=== PATIENT | female | born 1985 | race African-American/Black ===

== ENCOUNTER 2016-12-20 05:31 | Day surgery (SDC) | payer MEDICARE, MEDICAID ==
[2016-12-14 10:47] LABS: APPEARANCE,URINE SLIGHTLY-CLOUDY; BILIRUBIN,URINE NEGATIVE (NEGATIVE); GLUCOSE, URINE NEGATIVE (NEGATIVE); KETONES,URINE NEGATIVE (NEGATIVE); LEUKOCYTE ESTERASE,URINE NEGATIVE (NEGATIVE); NITRITE,URINE NEGATIVE (NEGATIVE); PROTEIN,URINE NEGATIVE (NEGATIVE); UROBILINOGEN,URINE NEGATIVE mg/dL (<2.0)
[2016-12-14 11:07] LABS: HEMOGLOBIN 12.5 g/dL (12.0-15.5); HGB HCT DIFFERENCE -0.5; MEAN CORPUSCULAR HEMOGLOBIN 28.4 pg (27.0-33.4); MEAN CORPUSCULAR HGB CONC 32.9 g/dL (32.0-36.0); MEAN CORPUSCULAR VOLUME 86 fl (80-97); RED CELL DISTRIBUTION WIDTH 14.4 % (11.5-14.0)
[2016-12-14 11:21] LABS: ALANINE AMINOTRANSFERASE 28 U/L (9-52); ALBUMIN 4.8 g/dL (3.5-5.0); ALKALINE PHOSPHATASE 119 U/L (38-126); ANION GAP 13 (5-19); ASPARTATE AMINO TRANSFERASE 26 U/L (14-36); BILIRUBIN,DIRECT 0.4 mg/dL (0.0-0.4); BILIRUBIN,TOTAL 0.4 mg/dL (0.2-1.3); BLOOD UREA NITROGEN 18 mg/dL (7-20); CALCIUM 10.2 mg/dL (8.4-10.2); CARBON DIOXIDE 21 mmol/L (22-30); CHLORIDE 110 mmol/L (98-107); CREATININE RESULT 0.84 mg/dL (0.52-1.25); GLUCOSE 91 mg/dL (75-110); POTASSIUM 4.2 mmol/L (3.6-5.0); TOTAL PROTEIN 7.5 g/dL (6.3-8.2)
[~2016-12-20 05:31] MED LIST: CEFAZOLIN 1 GM/D5W RTU 1 GM/50 ML RTUPB IV PRN; LACTATED RINGERS 1000 ML IV PRN
[2016-12-20] MEDS ORDERED: FENTANYL CITRATE INJ/PF 250 MCG/5 ML AMPULE ONE (06:52)
[2016-12-20] MEDS ORDERED: MIDAZOLAM 2 MG/2 ML INJ ONE (06:52)
[2016-12-20] MEDS ORDERED: PROPOFOL INJ 200 MG/20 ML VIAL IV ONE (06:53)
[2016-12-20] MEDS ORDERED: EPHEDRINE SULFATE INJ 50 MG/1 ML AMPULE ONE (06:53)
[2016-12-20] MEDS ORDERED: ACETAMINOPHEN 100 ML IV ONE (06:53)
[2016-12-20] MEDS ORDERED: FENTANYL CITRATE INJ/PF 100 MCG/2 ML AMPUL ONE (06:54)
[2016-12-20] MEDS ORDERED: LIDOCAINE 1% INJ-PF (10 MG/ML) 30 ML SDV ONE (07:30)
[2016-12-20] MEDS ORDERED: MEPERIDINE HCL/PF INJ 25 MG/1 ML DISP.SYRIN IV PRN (08:06)
[2016-12-20] MEDS ORDERED: PROMETHAZINE HCL INJ 25 MG/1 ML VIAL IV PRN ×2 (08:06→08:52)
[2016-12-20] MEDS ORDERED: DIPHENHYDRAMINE HCL 50 MG/ML VIAL IV PRN (08:06)
[2016-12-20] MEDS ORDERED: MORPHINE SULFATE 10 MG/ML INJ IV PRN (08:06)
[2016-12-20] MEDS ORDERED: FENTANYL CITRATE INJ/PF 100 MCG/2 ML AMPUL IV PRN ×3 (08:06)
[2016-12-20 08:35] LABS: APPEARANCE,URINE CLEAR; BILIRUBIN,URINE NEGATIVE (NEGATIVE); GLUCOSE, URINE NEGATIVE (NEGATIVE); KETONES,URINE NEGATIVE (NEGATIVE); LEUKOCYTE ESTERASE,URINE NEGATIVE (NEGATIVE); NITRITE,URINE NEGATIVE (NEGATIVE); PROTEIN,URINE NEGATIVE (NEGATIVE); URINE SPECIFIC GRAVITY 1.019; UROBILINOGEN,URINE NEGATIVE mg/dL (<2.0)
[2016-12-20] MEDS: FENTANYL CITRATE INJ/PF 100 MCG/2 ML AMPUL ONE ×2 (08:37→08:52)
[2016-12-20] MEDS ORDERED: OXYCODONE-ACETAMINOPHEN 5-325 MG TABLET PO PRN (08:52)
--- NOTE | 2016-12-20 08:53 | OPERATIVE REPORT E ---
Operative Report NAME: DENA OWENS : 1985 AGE: 31Y DATE OF SURGERY: 12/20/2016 ROOM: PREOPERATIVE DIAGNOSIS: Left labial nodule and hematuria. POSTOPERATIVE DIAGNOSIS: Hematuria, cause undetermined, and scar tissue from previous left labial abscess. OPERATION: Cysto and pelvic under anesthesia. SURGEON: CASSANDRA DRAPER M.D. ANESTHESIA: General. FINDINGS AT THE TIME OF SURGERY: The vulva had a scar where she had had a previous left labial abscess. It seemed to be pretty well resolved so nothing was done with this. The urethral opening appeared to be normal. [place] glands were normal. No Bartholin cyst. The vagina had no discharge. Cervix was within normal limits. Uterus was mid plane, not enlarged. Adnexa: No masses were appreciated. PROCEDURE: The patient was brought into the OR, placed on a table in a supine position, inducted under general anesthesia. Following this she was repositioned in a dorsal lithotomy position, prepped and draped in a sterile fashion. The bladder was drained of 50 mL of clear yellow urine and a sample was sent for a urinalysis and culture. The cystoscope was gently inserted with the saline running through the external urethral meatus, carried through the internal meatus as the saline was running. It was allowed to fill up. The bladder was inspected. There was no evidence of any hemorrhages and no petechia. The trigone and ureteral orifices were within normal limits. The dome of the bladder appeared to be normal. The saline was removed and the cystoscope was removed. Attention was turned to the left labial nodule. This was inspected. At this point in time there was no drainage. This appeared to be a nodule secondary to a residual abscess that had healed. With this in mind we decided not to proceed in lieu of the fact that we may make it worse by increasing the amount of scar tissue in this area. This terminated the procedure. The patient was put back into the supine position and anesthesia was discontinued. She was transferred to the recovery room in satisfactory condition. Negligible blood loss. DICTATING PHYSICIAN: CASSANDRA DRAPER M.D. [id number] PHY#: [id number] ID: [id number] JOB#: [id number] ACCT: [id number] cc:CASSANDRA DRAPER M.D. >
[2016-12-20] MEDS ORDERED: LIDOCAINE 2% INJ-PF (20 MG/ML) 10 ML AMPUL ONE (10:23)
[2016-12-20] MEDS ORDERED: ONDANSETRON HCL INJ/PF 4 MG/2 ML SDV ONE (10:23)
[2016-12-20] MEDS ORDERED: DEXAMETHASONE SOD PHOSPHATE INJ 4 MG/1 ML VIAL ONE (10:23)
[2016-12-20] MEDS ORDERED: SUCCINYLCHOLINE CHLORIDE INJ 200 MG/10 ML VIAL ONE (10:23)
[2016-12-20] MEDS ORDERED: GLYCOPYRROLATE INJ 0.4 MG/2 ML VIAL ONE (10:23)
[2016-12-20 11:17] VITALS: BP 138/93
== END 2016-12-20 11:00 | disposition home or self-care (01) ==
LOC: OROUT 05:31
PROVIDERS: ATTEND Obstetrics & Gynecology
PROC: 0TJB8ZZ Inspection of Bladder, Via Natural or Artificial Opening Endoscopic (ICD-10-PCS; principal; 2016-12-20 07:30)
DX: N94.89 Other specified conditions associated with female genital organs and menstrual cycle (principal); R31.9 Hematuria, unspecified
CPT/HCPCS: 36415; 87086; 85027; 81025; 80053; 81001 ×2; 52000; J2250; J0690; J1100; J3010 ×2; J3490 ×2; A9270; J2550; J0330; J2405; J2704; J0131; 910

== ENCOUNTER → 2017-04-12 | Outpatient (CLI) | payer MEDICARE, MEDICAID ==
--- NOTE | 2017-04-12 16:38 | RADIOLOGY REPORT (SQ) ---
EXAM DESCRIPTION: SACRUM AND COCCYX COMPLETED DATE/TIME: 04/12/2017 4:26 pm REASON FOR STUDY: FALL WITH PAIN ROM ISSUES LOW BACK COMPARISON: None. NUMBER OF VIEWS: Three views. TECHNIQUE: AP, lateral, and tilt views of the sacrum and coccyx. LIMITATIONS: None. FINDINGS: MINERALIZATION: Normal. BONES: On the lateral view, there is an acute fracture through the distal sacrum near the sacrococcyg eal junction. This is nondisplaced nonangulated. SOFT TISSUES: No soft tissue swelling. No foreign body. OTHER: No other significant finding. IMPRESSION: Lateral view demonstrates an acute fracture through the distal sacrum near the sacrococc ygeal junction. This is non angulated, nondisplaced. TECHNICAL DOCUMENTATION: JOB ID: [id number] [employer]- All Rights Reserved
== END ==
LOC: RAD 16:05
PROVIDERS: ATTEND Obstetrics & Gynecology
DX: M54.5 Low back pain (principal)
CPT/HCPCS: 72220

== ENCOUNTER → 2017-06-25 | Outpatient (CLI) | payer MEDICARE, MEDICAID ==
--- NOTE | 2017-06-25 13:19 | RADIOLOGY REPORT (SQ) ---
EXAM DESCRIPTION: CHEST PA/LAT COMPLETED DATE/TIME: 06/25/2017 12:32 pm REASON FOR STUDY: PERSISTENT COUGH/RHINOSINUSITIS/BRONCHITIS COMPARISON: None. EXAM PARAMETERS: NUMBER OF VIEWS: two views TECHNIQUE: Digital Frontal and Lateral radiographic views of the chest acquired. RADIATION DOSE: NA LIMITATIONS: none FINDINGS: LUNGS AND PLEURA: No opacities, masses or pneumothorax. No pleural effusion. MEDIASTINUM AND HILAR STRUCTURES: No masses or contour abnormalities. HEART AND VASCULAR STRUCTURES: Heart normal size. No evidence for failure. BONES: No acute findings. HARDWARE: None in the chest. OTHER: No other significant finding. IMPRESSION: NO SIGNIFICANT RADIOGRAPHIC FINDING IN THE CHEST. TECHNICAL DOCUMENTATION: JOB ID: [id number] [employer]- All Rights Reserved Reading location - IP/workstation name: [email or web address]
--- NOTE | 2017-06-25 13:24 | RADIOLOGY REPORT (SQ) ---
EXAM DESCRIPTION: PARANASAL SINUSES COMPLETED DATE/TIME: 06/25/2017 12:32 pm REASON FOR STUDY: RHINOSINUSITIS COMPARISON: None. NUMBER OF VIEWS: Three views. TECHNIQUE: Images of the paranasal sinuses acquired. LIMITATIONS: None. FINDINGS: ORBITS: No fracture. No foreign body. SINUSES: No mucosal thickening. No air fluid levels. FACIAL BONES: No fracture. OTHER: No other significant finding. IMPRESSION: NO FOREIGN BODY OR FRACTURE. NO PLAIN RADIOGRAPHIC EVIDENCE FOR SINUS DISEASE. TECHNICAL DOCUMENTATION: JOB ID: [id number] [employer]- All Rights Reserved Reading location - IP/workstation name: [email or web address]
== END ==
LOC: RAD 12:00
PROVIDERS: ATTEND Obstetrics & Gynecology
DX: J32.9 Chronic sinusitis, unspecified (principal); J40 Bronchitis, not specified as acute or chronic; R05 Cough
CPT/HCPCS: 70220; 71046

== ENCOUNTER 2018-02-18 19:51 | Observation (INO) | payer OTHER, MEDICARE, MEDICAID ==
[2018-02-18 20:39] LABS: APPEARANCE,URINE CLEAR; BILIRUBIN,URINE NEGATIVE (NEGATIVE); COLOR,URINE YELLOW; GLUCOSE, URINE NEGATIVE (NEGATIVE); KETONES,URINE NEGATIVE (NEGATIVE); LEUKOCYTE ESTERASE,URINE MODERATE (NEGATIVE); NITRITE,URINE NEGATIVE (NEGATIVE); PROTEIN,URINE NEGATIVE (NEGATIVE); URINE SPECIFIC GRAVITY 1.008; UROBILINOGEN,URINE NEGATIVE mg/dL (<2.0)
[2018-02-18 20:53] LABS: URINE AMPHETAMINES SCREEN NEGATIVE; URINE BARBITURATES SCREEN NEGATIVE; URINE BENZODIAZEPINES SCREEN NEGATIVE; URINE COCAINE SCREEN NEGATIVE; URINE METHADONE SCREEN NEGATIVE; URINE PHENCYCLIDINE SCREEN NEGATIVE
[2018-02-18 21:04] LABS: URINE MARIJUANA (THC) SCREEN UNCONFIRMED POSITIVE
[2018-02-19] MEDS ORDERED: RINGERS SOLUTION,LACTATED 1,000 ML IV PRN (01:12)
[2018-02-19] MEDS ORDERED: NIFEDIPINE 10 MG CAPSULE ONE (01:17)
[2018-02-19] MEDS ORDERED: NIFEDIPINE 10 MG CAPSULE PO ONE (01:55)
[2018-02-19 01:59] LABS: HEMATOCRIT 28.6 % (36.0-47.0); HEMOGLOBIN 9.9 g/dL (12.0-15.5); MEAN CORPUSCULAR HEMOGLOBIN 29.6 pg (27.0-33.4); MEAN CORPUSCULAR HGB CONC 34.4 g/dL (32.0-36.0); MEAN CORPUSCULAR VOLUME 86 fl (80-97); PLATELET COUNT 186 10^3/uL (150-450); RED BLOOD COUNT 3.33 10^6/uL (3.72-5.28); RED CELL DISTRIBUTION WIDTH 13.9 % (11.5-14.0); WHITE BLOOD COUNT 10.1 10^3/uL (4.0-10.5)
[2018-02-19 02:17] LABS: ABSOLUTE LYMPHOCYTES# (MANUAL) 1.8 10^3/uL (0.5-4.7); ABSOLUTE MONOCYTES # (MANUAL) 0.4 10^3/uL (0.1-1.4); ABSOLUTE NEUTROPHILS# (MANUAL) 7.9 10^3/uL (1.7-8.2); BASOPHILS % (MANUAL) 0 % (0-2); EOSINOPHILS % (MANUAL) 0 % (0-6); LYMPHOCYTES % (MANUAL) 17 % (13-45); MONOCYTES % (MANUAL) 4 % (3-13); SEGMENTED NEUTROPHILS % (MAN) 78 % (42-78); TOTAL CELLS COUNTED 100
[2018-02-19 02:20] LABS: ACANTHOCYTES 1+; HELMET CELLS SLIGHT; OVALOCYTES 1+; POIKILOCYTOSIS 1+; TOXIC GRANULATION SLIGHT
[2018-02-19 02:21] LABS: PLATELET COMMENT ADEQUATE
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
== END 2018-02-19 08:05 | disposition home or self-care (01) ==
LOC: LC 19:51 → LR 02-19 01:12
PROVIDERS: ADMIT Obstetrics & Gynecology; ATTEND Obstetrics & Gynecology
PROC: 4A0HXCZ Measurement of Products of Conception, Cardiac Rate, External Approach (ICD-10-PCS; principal; 2018-02-18)
DX: Z04.1 Encounter for examination and observation following transport accident (principal); O47.03 False labor before 37 completed weeks of gestation, third trimester; Z3A.35 35 weeks gestation of pregnancy; Z87.891 Personal history of nicotine dependence
CPT/HCPCS: 59025; 86900; 86901; 36415; 86850; 85025; 86592; 81001; 80307; 84112; J3490

== ENCOUNTER 2018-02-26 03:05 | Inpatient (IN) | payer MEDICARE, MEDICAID ==
[2018-02-26] MEDS ORDERED: OXYTOCIN/NORMAL SALINE 20 UNIT/1,000 ML RTUINJ ONE ×3 (03:10→08:16)
[2018-02-26] MEDS ORDERED: LIDOCAINE 1% INJ-PF (10 MG/ML) 30 ML SDV ONE (03:11)
[2018-02-26] MEDS ORDERED: OXYTOCIN 10 UNIT/ML VIAL ONE (03:11)
[2018-02-26] MEDS ORDERED: MISOPROSTOL 0.2 MG TABLET ONE ×2 (03:11→08:19)
[2018-02-26] MEDS ORDERED: PENICILLIN G-K 5 MILLION UNIT VIAL ONE (03:16)
[2018-02-26] MEDS ORDERED: FENTANYL CITRATE INJ/PF 100 MCG/2 ML AMPUL ONE (03:18)
[2018-02-26] MEDS ORDERED: FENTANYL CITRATE INJ/PF 100 MCG/2 ML AMPUL IV ONE (03:22)
[2018-02-26] MEDS ORDERED: PENICILLIN G POTASSIUM 5,000,000 UNIT in DEXTROSE 5%-WATER 100 ML IV ONE (03:26)
[2018-02-26] MEDS ORDERED: RINGERS SOLUTION,LACTATED 1,000 ML IV ONE (03:26)
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
[2018-02-26 03:43] LABS: HEMATOCRIT 32.8 % (36.0-47.0); MEAN CORPUSCULAR HEMOGLOBIN 29.1 pg (27.0-33.4); MEAN CORPUSCULAR HGB CONC 33.6 g/dL (32.0-36.0); MEAN CORPUSCULAR VOLUME 87 fl (80-97); PLATELET COUNT 221 10^3/uL (150-450); RED BLOOD COUNT 3.78 10^6/uL (3.72-5.28); RED CELL DISTRIBUTION WIDTH 14.2 % (11.5-14.0); WHITE BLOOD COUNT 16.9 10^3/uL (4.0-10.5)
[2018-02-26] MEDS ORDERED: EPHEDRINE SULFATE INJ 50 MG/1 ML AMPULE ONE (04:12)
[2018-02-26] MEDS ORDERED: FENTANYL/BUPIVACAINE/NS/PF 0 MCG/0 ML RTUINJ EPI ONE (04:13)
[2018-02-26] MEDS ORDERED: BUPIVACAINE HCL 0.5 % INJ/PF 30 ML SDV ONE (04:13)
[2018-02-26] MEDS ORDERED: OXYTOCIN/NORMAL SALINE 20 UNIT/1,000 ML RTUINJ IV PRN ×2 (05:14→05:58)
[2018-02-26] MEDS ORDERED: PSEUDOEPHEDRINE HCL 30 MG TABLET PO PRN (05:58)
[2018-02-26] MEDS ORDERED: DIBUCAINE 1% OINTMENT 28 GM TP PRN (05:58)
[2018-02-26] MEDS ORDERED: MAGNESIUM HYDROXIDE SUSP 30 ML UDCUP PO PRN (05:58)
[2018-02-26] MEDS ORDERED: MEASLES,MUMPS&RUBELLA VACC/PF 0.5 ML VIAL SUBCUT PRN (05:58)
[2018-02-26] MEDS ORDERED: NA PHOS,M-B/NA PHOS,DI-BA (ADULT) 133 ML ENEMA PR PRN (05:58)
[2018-02-26] MEDS ORDERED: PROMETHAZINE HCL INJ 25 MG/1 ML VIAL IV PRN (05:58)
[2018-02-26] MEDS ORDERED: ACETAMINOPHEN 650 MG SUPP.RECT PR PRN (05:58)
[2018-02-26] MEDS ORDERED: BENZOCAINE/MENTHOL AEROSOL SPRAY 56 ML TOP PRN (05:58)
[2018-02-26] MEDS ORDERED: DIPHENHYDRAMINE HCL 25 MG CAPSULE PO PRN (05:58)
[2018-02-26] MEDS ORDERED: PROMETHAZINE HCL 25 MG SUPP.RECT PR PRN (05:58)
[2018-02-26] MEDS ORDERED: ZOLPIDEM TARTRATE 5 MG TABLET PO PRN (05:58)
[2018-02-26] MEDS ORDERED: PROMETHAZINE HCL 25 MG TABLET PO PRN (05:58)
[2018-02-26] MEDS ORDERED: DIPH/PERTUSS(ACELL)/TETANUS VAC/PF 0.5 ML SYR (>=10YO) IM PRN (05:58)
[2018-02-26] MEDS ORDERED: GLYCERIN/WITCH HAZEL LEAF 1 EACH MED..PAD TP PRN (05:58)
[2018-02-26] MEDS ORDERED: ACETAMINOPHEN WITH CODEINE #3 TABLET PO PRN (05:58)
[2018-02-26] MEDS ORDERED: IBUPROFEN 800 MG TABLET ONE (06:05)
[2018-02-26 06:08] LABS: APPEARANCE,URINE CLEAR; BILIRUBIN,URINE NEGATIVE (NEGATIVE); COLOR,URINE STRAW; GLUCOSE, URINE NEGATIVE (NEGATIVE); KETONES,URINE TRACE mg/dL (NEGATIVE); LEUKOCYTE ESTERASE,URINE NEGATIVE (NEGATIVE); NITRITE,URINE NEGATIVE (NEGATIVE); PROTEIN,URINE NEGATIVE (NEGATIVE); URINE SPECIFIC GRAVITY 1.018; UROBILINOGEN,URINE NEGATIVE mg/dL (<2.0)
[2018-02-26 06:17] LABS: URINE AMPHETAMINES SCREEN NEGATIVE; URINE BARBITURATES SCREEN NEGATIVE; URINE BENZODIAZEPINES SCREEN NEGATIVE; URINE COCAINE SCREEN NEGATIVE; URINE METHADONE SCREEN NEGATIVE; URINE PHENCYCLIDINE SCREEN NEGATIVE
[2018-02-26 06:24] LABS: URINE MARIJUANA (THC) SCREEN UNCONFIRMED POSITIVE
--- NOTE | 2018-02-26 06:35 | Warning Signs in Babies ---
VOD Warning Signs Datetime Report Generated by N: 02/26/2018 06:35 VOD#608 -Warning Signs in Babies: Viewed with Parent(s)/Family (02/26/2018 06:20:Rosy Miranda RN)
[2018-02-26] MEDS ORDERED: PENICILLIN G POTASSIUM 2,500,000 UNIT in DEXTROSE 5%-WATER 50 ML IV SCH (07:27)
--- NOTE | 2018-02-26 07:31 | Delivery Summary ---
Del Sum A-C Datetime Report Generated by CPN: 02/26/2018 07:31 DELIVERY PERSONNEL DELIVERY PERSONNEL: [id number] Delivery Doctor:: Danielle Galvan MD Labor and Delivery Nurse:: Rosy Miranda RN Community Living Coach/GAME MASTER: Angel Ortiz GAME MASTER Community Living Coach/GAME MASTER: Guille Zazueta CNA Additional Personnel: : Lenore Hill, RN MATERNAL INFORMATION Delivery Anesthesia: None Medications After Delivery: Pitocin Drip 20 Units/1000ml NSS Estimated Blood Loss (ml): 300 Maternal Complications: Precipitous Labor (<3hrs); Abruptio Placenta Complication Details: partial placental abruption Provider Comments: dark clotted blood with passage of placenta c/w a possible partial abruption LABOR SUMMARY EDC: 03/21/2018 00:00 No. Babies in Womb: 1 Attempted: No Labor Anesthesia: None LABOR INFORMATION Reason for Induction: Not Applicable Onset of Labor: 02/26/2018 03:15 Complete Dilatation: 02/26/2018 05:43 Oxytocin: Augmentation Group B Beta Strep: unknown Antibiotics # of Doses: 1 Antibiotics Time of Last Dose: 0316 Name of Antibiotic Given: Penicillin Steroids Given: None Reason Steroids Not Administered: Not Applicable MEMBRANES Membranes Rupture Method: Artificial Rupture of Membranes: 02/26/2018 03:15 (Annotations: Per Dr. Galvan sve assessment ) Length of Rupture (hr): 2.52 Amniotic Fluid Color: Clear Amniotic Fluid Amount: Small Amniotic Fluid Odor: Normal STAGES OF LABOR Stage 1 hr: 2 Stage 1 min: 28 Stage 2 hr: 0 Stage 2 min: 3 Stage 3 hr: 0 Stage 3 min: 4 Total Time in Labor hr: 2 Total Time in Labor min: 35 VAGINAL DELIVERY Episiotomy: None Laceration #1: None Laceration Extension #1: N/A Laceration Repair: Not Applicable Sponge Count Correct: N/A Sharps Count Correct: N/A CSECTION DELIVERY Primary Indication: N/A Secondary Indication: N/A CSection Incidence: N/A Labor: N/A Elective: N/A CSection Incision: N/A BABY A INFORMATION Delivery Date/Time: 02/26/2018 05:46 Method of Delivery: Vaginal Born in Route : No : N/A Forceps: N/A Vacuum Extraction: N/A Shoulder Dystocia : No PRESENTATION/POSITION BABY A Presentation: Cephalic Cephalic Presentation: Vertex Vertex Position: Right Occipital Anterior Breech Presentation: N/A PLACENTA INFORMATION BABY A Placenta Delivery Time : 02/26/2018 05:50 Placenta Method of Delivery: Spontaneous Placenta Status: Delivered SCORES BABY A Heart Rate 1 min: >100 bpm Resp Effort 1 min: Good Cry Reflex Irritability 1 min: Cough or Sneeze or Pulls Away Muscle Tone 1 min: Active Motion Color 1 min: Blue/Pale Resuscitation Effort 1 min: Tactile Stimulation SCORE 1 MIN: 8 Heart Rate 5 min: >100 bpm Resp Effort 5 min: Good Cry Reflex Irritability 5 min: Cough or Sneeze or Pulls Away Muscle Tone 5 min: Active Motion Color 5 min: Body [place], Extremities Blue SCORE 5 MIN: 9 INFANT INFORMATION BABY A Gestational Age at Delivery: 36.5 Gestational Status: Late - 34- 36.6 Weeks Infant Outcome : Liveborn Infant Condition : Stable Infant Sex: Male IDENTIFICATION BABY A Infant Verification Date/Time: 02/26/2018 06:00 ID Band Number: [id number] Mother's Name Verified: Yes RN Verifying Infant: MRichard Miranda RN Additional Verifying Personnel: RRichard Ortiz GAME MASTER WEIGHT/LENGTH BABY A Birthweight (gm): 2520 Infant Weight (lb): 5 Weight (oz): 9 Infant Length (in): 18.50 Length (cm): 46.99 CORD INFORMATION BABY A No. Cord Vessels: 3 Nuchal Cord : N/A Cord Blood Taken: Yes-For Storage (Mom's Blood type +) Suction: None ASSESSMENT BABY A Infant Complications: Multiple Variable Decels Physical Findings at Delivery: Within Normal Limits Infant Respirations: Appears Normal Skin to Skin: No Sports Development Officer/ALS Called : No Care By: Abelardo Massey RN Transferred To: Remains with Mother BABY B INFORMATION : N/A SIGNATURES Signature: with User ID: [email or web address]
[2018-02-26] MEDS ORDERED: METHYLERGONOVINE MALEATE INJ/PF 0.2 MG/1 ML AMPULE ONE (08:17)
[2018-02-26] MEDS ORDERED: ONDANSETRON HCL INJ/PF 4 MG/2 ML SDV ONE (09:09)
[2018-02-26] MEDS ORDERED: ONDANSETRON HCL INJ/PF 4 MG/2 ML SDV IV ONE (09:10)
--- NOTE | 2018-02-26 13:39 | Delivery Summary ---
Del Sum A-C Datetime Report Generated by CPN: 02/26/2018 13:38 DELIVERY PERSONNEL DELIVERY PERSONNEL: [id number] Delivery Doctor:: Danielle Galvan MD Labor and Delivery Nurse:: Rosy Miranda RN Asphalt Plant Worker/DIRECTOR OF PROFESSIONAL SERVICES: Angel Ortiz DIRECTOR OF PROFESSIONAL SERVICES Asphalt Plant Worker/DIRECTOR OF PROFESSIONAL SERVICES: Guille Zazueta CNA Additional Personnel: : Lenore Hill, RN MATERNAL INFORMATION Delivery Anesthesia: None Medications After Delivery: Pitocin Drip 20 Units/1000ml NSS Estimated Blood Loss (ml): 300 Maternal Complications: Precipitous Labor (<3hrs); Abruptio Placenta Complication Details: partial placental abruption Provider Comments: dark clotted blood with passage of placenta c/w a possible partial abruption LABOR SUMMARY EDC: 03/21/2018 00:00 No. Babies in Womb: 1 Attempted: No Labor Anesthesia: None LABOR INFORMATION Reason for Induction: Not Applicable Onset of Labor: 02/26/2018 03:15 Complete Dilatation: 02/26/2018 05:43 Oxytocin: Augmentation Group B Beta Strep: unknown Antibiotics # of Doses: 1 Antibiotics Time of Last Dose: 0316 Name of Antibiotic Given: Penicillin Steroids Given: None Reason Steroids Not Administered: Not Applicable MEMBRANES Membranes Rupture Method: Artificial Membranes Rupture Method: Spontaneous Membranes Rupture Method: Spontaneous Rupture of Membranes: 02/26/2018 03:15 (Annotations: Per Dr. Galvan sve assessment ) Length of Rupture (hr): 2.52 Amniotic Fluid Color: Clear Amniotic Fluid Amount: Small Amniotic Fluid Odor: Normal STAGES OF LABOR Stage 1 hr: 2 Stage 1 min: 28 Stage 2 hr: 0 Stage 2 min: 3 Stage 3 hr: 0 Stage 3 min: 4 Total Time in Labor hr: 2 Total Time in Labor min: 35 VAGINAL DELIVERY Episiotomy: None Laceration #1: None Laceration Extension #1: N/A Laceration Repair: Not Applicable Sponge Count Correct: N/A Sharps Count Correct: N/A CSECTION DELIVERY Primary Indication: N/A Secondary Indication: N/A CSection Incidence: N/A Labor: N/A Elective: N/A CSection Incision: N/A BABY A INFORMATION Infant Delivery Date/Time: 02/26/2018 05:46 Method of Delivery: Vaginal Method of Delivery: Vaginal Born in Route : No : N/A Forceps: N/A Vacuum Extraction: N/A Shoulder Dystocia : No PRESENTATION/POSITION BABY A Presentation: Cephalic Cephalic Presentation: Vertex Vertex Position: Right Occipital Anterior Breech Presentation: N/A PLACENTA INFORMATION BABY A Placenta Delivery Time : 02/26/2018 05:50 Placenta Method of Delivery: Spontaneous Placenta Method of Delivery: Spontaneous Placenta Status: Delivered SCORES BABY A Heart Rate 1 min: >100 bpm Resp Effort 1 min: Good Cry Reflex Irritability 1 min: Cough or Sneeze or Pulls Away Muscle Tone 1 min: Active Motion Color 1 min: Blue/Pale Resuscitation Effort 1 min: Tactile Stimulation SCORE 1 MIN: 8 Heart Rate 5 min: >100 bpm Resp Effort 5 min: Good Cry Reflex Irritability 5 min: Cough or Sneeze or Pulls Away Muscle Tone 5 min: Active Motion Color 5 min: Body [place], Extremities Blue SCORE 5 MIN: 9 INFANT INFORMATION BABY A Gestational Age at Delivery: 36.5 Gestational Status: Late - 34- 36.6 Weeks Outcome : Liveborn Condition : Stable Sex: Male Sex: Male IDENTIFICATION BABY A Verification Date/Time: 02/26/2018 06:00 ID Band Number: [id number] Mother's Name Verified: Yes RN Verifying Infant: Abelardo Miranda RN Additional Verifying Personnel: RRichard Ortiz DIRECTOR OF PROFESSIONAL SERVICES WEIGHT/LENGTH BABY A Birthweight (gm): 2520 Weight (lb): 5 Infant Weight (oz): 9 Length (in): 18.50 Infant Length (cm): 46.99 CORD INFORMATION BABY A No. Cord Vessels: 3 Nuchal Cord : N/A Cord Blood Taken: Yes-For Storage (Mom's Blood type +) Infant Suction: None ASSESSMENT BABY A Infant Complications: Multiple Variable Decels Physical Findings at Delivery: Within Normal Limits Respirations: Appears Normal Skin to Skin: No Vessel Traffic Officer/ALS Called : No Care By: Abelardo Massey RN Infant Care By: Abelardo Massey RN Transferred To: Remains with Mother Transferred To: [facility] BABY B INFORMATION : N/A SIGNATURES Signature: with User ID: [email or web address]
[2018-02-26] MEDS: IBUPROFEN 800 MG TABLET PO SCH ×3 (14:02→21:59)
[2018-02-26] MEDS: DOCUSATE SODIUM 100 MG CAPSULE PO SCH ×2 (17:01→17:04)
[2018-02-26] MEDS: FERROUS SULFATE 325 MG TABLET PO SCH ×2 (17:02→17:04)
[2018-02-26] MEDS: FAMOTIDINE 20 MG TABLET PO SCH ×2 (17:04→22:00)
[2018-02-26] MEDS: SENNOSIDES/DOCUSATE 8.6-50 MG 1 EACH TABLET PO SCH (17:05)
[2018-02-26] MEDS: PRENATAL VITAMIN W DHA CAPSULE PO SCH (17:05)
[2018-02-26 17:20] LABS: HEMATOCRIT 17.9 % (36.0-47.0); MEAN CORPUSCULAR HEMOGLOBIN 29.3 pg (27.0-33.4); MEAN CORPUSCULAR HGB CONC 34.1 g/dL (32.0-36.0); MEAN CORPUSCULAR VOLUME 86 fl (80-97); PLATELET COUNT 139 10^3/uL (150-450); RED BLOOD COUNT 2.09 10^6/uL (3.72-5.28); RED CELL DISTRIBUTION WIDTH 14.2 % (11.5-14.0); WHITE BLOOD COUNT 16.9 10^3/uL (4.0-10.5)
[2018-02-26 17:25] LABS: HEMOGLOBIN 6.1 g/dL (12.0-15.5)
[2018-02-26 21:22] LABS: HEMATOCRIT 17.4 % (36.0-47.0); MEAN CORPUSCULAR HEMOGLOBIN 29.3 pg (27.0-33.4); MEAN CORPUSCULAR HGB CONC 33.5 g/dL (32.0-36.0); MEAN CORPUSCULAR VOLUME 87 fl (80-97); PLATELET COUNT 162 10^3/uL (150-450); RED BLOOD COUNT 1.99 10^6/uL (3.72-5.28); RED CELL DISTRIBUTION WIDTH 14.1 % (11.5-14.0); WHITE BLOOD COUNT 17.1 10^3/uL (4.0-10.5)
[2018-02-26 21:24] LABS: HEMOGLOBIN 5.8 g/dL (12.0-15.5)
[2018-02-26] MEDS ORDERED: NORMAL SALINE 250 ML IV PRN (21:37)
[2018-02-27] MEDS: IBUPROFEN 800 MG TABLET PO SCH ×3 (05:21→21:23)
[2018-02-27] MEDS: ACETAMINOPHEN WITH CODEINE #3 TABLET PO PRN ×3 (06:08→18:16)
[2018-02-27 07:49] LABS: HEMATOCRIT 23.8 % (36.0-47.0); MEAN CORPUSCULAR HEMOGLOBIN 28.7 pg (27.0-33.4); MEAN CORPUSCULAR HGB CONC 33.7 g/dL (32.0-36.0); MEAN CORPUSCULAR VOLUME 85 fl (80-97); PLATELET COUNT 127 10^3/uL (150-450); RED BLOOD COUNT 2.79 10^6/uL (3.72-5.28); RED CELL DISTRIBUTION WIDTH 14.1 % (11.5-14.0); WHITE BLOOD COUNT 13.2 10^3/uL (4.0-10.5)
[2018-02-27] MEDS: FAMOTIDINE 20 MG TABLET PO SCH ×2 (10:08→21:23)
[2018-02-27] MEDS: FERROUS SULFATE 325 MG TABLET PO SCH ×2 (10:08→18:13)
[2018-02-27] MEDS: DOCUSATE SODIUM 100 MG CAPSULE PO SCH ×2 (10:08→18:14)
[2018-02-27] MEDS: PRENATAL VITAMIN W DHA CAPSULE PO SCH (10:08)
[2018-02-27] MEDS: SENNOSIDES/DOCUSATE 8.6-50 MG 1 EACH TABLET PO SCH (10:08)
--- NOTE | 2018-02-27 10:29 | PDOC PROGRESS REPORT ---
Subjective-OB Progress Note for:: 02/27/18 Subjective: 32yo G4 now P4 s/p ppd1. Pt. ambulating and voiding without difficulties. Reports dizziness, lightheadedness and shortness of breath yesterday but none since blood transfusion. Pain well controlled with meds. Denies concerns today. Physical Exam (OB) Vital Signs: Temp Pulse Resp BP Pulse Ox 97.5 F 62 15 99/55 L 100 02/27/18 07:46 02/27/18 07:46 02/27/18 07:46 02/27/18 07:46 02/27/18 07:46 Intake & Output 02/26/18 02/27/18 02/28/18 06:59 06:59 06:59 Intake Total 320 Balance 320 Weight 55.9 kg - General General Appearance: Appears well In distress: None - PIH/Pre-Eclampsia Headache: Absent Epigastric Pain: No Visual Changes: No - Episiotomy/Laceration Site Condition: N/A - Lochia Lochia Amount: Scant < 10 ml Lochia Color: Rubra/Red - Abdomen Description: Soft Hernia Present: No Fundal Description: Firm, Midline Fundal Height: u/3 - u/4 - Respiratory Respiratory Status: No respiratory distress - Extremities Upper extremity: Normal inspection Lower extremities: Normal inspection - Neurological Cognition: Normal Orientation: AAOx4 - Psychological Associated symptoms: Normal affect, Normal mood Objective-Diagnostic Laboratory: 02/27/18 07:14 02/26/18 02/26/18 02/26/18 03:24 17:05 21:15 WBC 16.9 H 17.1 H RBC 2.09 L 1.99 L Hgb 6.1 L D 5.8 L Hct 17.9 L 17.4 L MCV 86 87 MCH 29.3 29.3 MCHC 34.1 33.5 RDW 14.2 H 14.1 H Plt Count 139 L 162 Blood Type O POSITIVE Antibody Screen NEGATIVE 02/27/18 07:14 WBC 13.2 H RBC 2.79 L Hgb 8.0 L D Hct 23.8 L MCV 85 MCH 28.7 MCHC 33.7 RDW 14.1 H Plt Count 127 L Blood Type Antibody Screen Assessment and Plan(PN) - Assessment and Plan (1) Vaginal delivery Is this a current diagnosis for this admission?: Yes Plan: Routine pp care, Monitor for s/s of infection (2) hemorrhage Qualifiers: hemorrhage type: unspecified Qualified Code(s): O72.1 - Other immediate hemorrhage Is this a current diagnosis for this admission?: Yes Plan: QBL was 794, bleeding stable since transfer from L&D. continue to monitor (3) Acute blood loss anemia Is this a current diagnosis for this admission?: Yes Plan: 2 units PRBC transfused, increase dietary iron and feso4 BID (4) Transfusion of blood during current hospitalisation Is this a current diagnosis for this admission?: Yes Plan: H/H improved to 8.2/23.8 this am, continue to monitor (5) Drug abuse during Is this a current diagnosis for this admission?: Yes Plan: discharge planning consult placed - Time Spent with Patient Time with patient: Less than 15 minutes Smoking Education Provided: Over 3 minutes Medications reviewed and adjusted accordingly: Yes - Disposition Anticipated Discharge: Home Within: within 24 hours
[2018-02-28] MEDS: ACETAMINOPHEN WITH CODEINE #3 TABLET PO PRN ×2 (02:28→09:34)
[2018-02-28] MEDS: IBUPROFEN 800 MG TABLET PO SCH (05:13)
[2018-02-28 08:51] VITALS: BP 125/70
[2018-02-28] MEDS: FERROUS SULFATE 325 MG TABLET PO SCH (09:31)
[2018-02-28] MEDS: DOCUSATE SODIUM 100 MG CAPSULE PO SCH (09:31)
[2018-02-28] MEDS: FAMOTIDINE 20 MG TABLET PO SCH (09:31)
[2018-02-28] MEDS: PRENATAL VITAMIN W DHA CAPSULE PO SCH (09:31)
[2018-02-28] MEDS: SENNOSIDES/DOCUSATE 8.6-50 MG 1 EACH TABLET PO SCH (09:31)
[2018-02-28] MEDS ORDERED: SIMETHICONE 80 MG TAB.CHEW PO ONE (10:33)
--- NOTE | 2018-02-28 10:37 | PDOC DISCHARGE SUMMARY ---
Final Diagnosis Discharge Date: 02/28/18 - Final Diagnosis (1) Vaginal delivery Is this a current diagnosis for this admission?: Yes Discharge Data - Discharge Medication Prescriptions: Acetaminophen with Codeine [Tylenol #3 Tablet] 1 each PO Q4HP PRN #20 tablet PRN Reason: Ibuprofen [Motrin 800 mg Tablet] 800 mg PO Q8HP PRN #60 tablet PRN Reason: Home Medications: Docusate Sodium [Colace] 100 mg PO DAILY 02/18/18 Pnv No.95/Ferrous Fum/Folic AC [ Vitamin Tablet] 1 each PO DAILY Ranitidine HCl [Zantac 150 mg Tablet] 150 mg PO BID 02/18/18 Acetaminophen with Codeine [Tylenol #3 Tablet] 1 each PO Q4HP PRN #20 tablet Ferrous Sulfate [Feosol 325 mg Tablet] 325 mg PO BID tablet 02/28/18 Ibuprofen [Motrin 800 mg Tablet] 800 mg PO Q8HP PRN #60 tablet 02/28/18 Vit/Dha [ Multi + Dha Capsule] 1 cap PO DAILY capsule Procedures: NST Intrapartum Procedure(s): Spontaneous Vaginal Delivery - Diagnosis Test Laboratory: Temp Pulse Resp BP Pulse Ox 97.9 F 59 L 16 125/70 100 02/28/18 07:38 02/28/18 07:38 02/28/18 07:38 02/28/18 07:38 02/28/18 07:38 02/26/18 02/26/18 02/26/18 03:27 05:28 17:05 RBC 3.78 2.09 L Hgb 11.0 L 6.1 L D Hct 32.8 L 17.9 L Urine Opiates Screen NEGATIVE 02/26/18 02/27/18 21:15 07:14 RBC 1.99 L 2.79 L Hgb 5.8 L 8.0 L D Hct 17.4 L 23.8 L Urine Opiates Screen - Discharge information/Instructions Discharge Activity: Balance Activity w/Rest, Pelvic Rest Discharge Diet: Regular Disposition: HOME, SELF-CARE Follow up with: [facility] in: 4, Weeks
--- NOTE | 2018-02-28 10:38 | PDOC PROGRESS REPORT ---
Subjective-OB Progress Note for:: 02/28/18 Subjective: reports bleeding slowing, complaining of right side pain. no CVAT. pt states it is possibly gas, RN notified and simethicone ordered. Physical Exam (OB) Vital Signs: Temp Pulse Resp BP Pulse Ox 97.9 F 59 L 16 125/70 100 02/28/18 07:38 02/28/18 07:38 02/28/18 07:38 02/28/18 07:38 02/28/18 07:38 Intake & Output 02/27/18 02/28/18 03/01/18 06:59 06:59 06:59 Intake Total 320 1250 Balance 320 1250 Weight 55.9 kg - Abdomen Description: Soft Hernia Present: No Fundal Description: Firm, Midline Fundal Height: u/3 - u/4 Objective-Diagnostic Laboratory: 02/27/18 07:14 02/26/18 07:30 Urine,Voided (Not Clean Catch) Chlamydia trachomatis ([facility]) - Final 02/26/18 07:30 Urine,Voided (Not Clean Catch) Neisseria gonorrhoeae ([facility]) - Final Assessment and Plan(PN) - Assessment and Plan (1) Vaginal delivery Is this a current diagnosis for this admission?: Yes - Time Spent with Patient Smoking Education Provided: Over 3 minutes Medications reviewed and adjusted accordingly: Yes - Disposition Anticipated Discharge: Home Within: Other - today
== END 2018-02-28 13:28 | disposition home or self-care (01) | DRG 805 ==
LOC: LC 03:05 → LR 03:23 → 2S 10:02
PROVIDERS: ADMIT Obstetrics & Gynecology; ATTEND Obstetrics & Gynecology
PROC: 10E0XZZ Delivery of Products of Conception, External Approach (ICD-10-PCS; principal; 2018-02-26)
PROC: 4A1HXCZ Monitoring of Products of Conception, Cardiac Rate, External Approach (ICD-10-PCS; 2018-02-26)
PROC: 30233N1 Transfusion of Nonautologous Red Blood Cells into Peripheral Vein, Percutaneous Approach (ICD-10-PCS; 2018-02-26)
PROC: 30233N1 Transfusion of Nonautologous Red Blood Cells into Peripheral Vein, Percutaneous Approach (ICD-10-PCS; 2018-02-27)
PROC: 3E02340 Introduction of Influenza Vaccine into Muscle, Percutaneous Approach (ICD-10-PCS; 2018-02-28)
DX: O62.3 Precipitate labor (principal); O45.8X3 Other premature separation of placenta, third trimester; Z37.0 Single live birth; O99.324 Drug use complicating childbirth; O72.1 Other immediate postpartum hemorrhage; D62 Acute posthemorrhagic anemia; O76 Abnormality in fetal heart rate and rhythm complicating labor and delivery; F12.90 Cannabis use, unspecified, uncomplicated; O99.02 Anemia complicating childbirth; Z3A.36 36 weeks gestation of pregnancy; Z87.891 Personal history of nicotine dependence; Z23 Encounter for immunization
CPT/HCPCS: 36415; 36430; 80307; 80349; 81001; 85027; 86592; 86850; 86900; 86901; 86920; 87086; 87491; 87591; 90471; 90686; 90715; G0008; G0480; J2210; J2405; J2540; J2590; J3010; J3490; P9016

== ENCOUNTER 2018-07-22 07:02 | Day surgery (SDC) | payer MEDICARE, MEDICAID ==
[2018-07-17 10:12] LABS: HEMATOCRIT 36.6 % (36.0-47.0); HEMOGLOBIN 12.3 g/dL (12.0-15.5); MEAN CORPUSCULAR HEMOGLOBIN 28.9 pg (27.0-33.4); MEAN CORPUSCULAR HGB CONC 33.7 g/dL (32.0-36.0); MEAN CORPUSCULAR VOLUME 86 fl (80-97); PLATELET COUNT 308 10^3/uL (150-450); RED BLOOD COUNT 4.27 10^6/uL (3.72-5.28); RED CELL DISTRIBUTION WIDTH 15.1 % (11.5-14.0); WHITE BLOOD COUNT 9.5 10^3/uL (4.0-10.5)
[2018-07-17 10:15] LABS: APPEARANCE,URINE CLEAR; BILIRUBIN,URINE NEGATIVE (NEGATIVE); COLOR,URINE YELLOW; GLUCOSE, URINE NEGATIVE (NEGATIVE); KETONES,URINE NEGATIVE (NEGATIVE); LEUKOCYTE ESTERASE,URINE NEGATIVE (NEGATIVE); NITRITE,URINE NEGATIVE (NEGATIVE); PROTEIN,URINE NEGATIVE (NEGATIVE); URINE SPECIFIC GRAVITY 1.017; UROBILINOGEN,URINE NEGATIVE mg/dL (<2.0)
[2018-07-17 10:36] LABS: ALANINE AMINOTRANSFERASE 37 U/L (9-52); ALBUMIN 4.7 g/dL (3.5-5.0); ALKALINE PHOSPHATASE 71 U/L (38-126); ANION GAP 8 (5-19); ASPARTATE AMINO TRANSFERASE 34 U/L (14-36); BILIRUBIN,DIRECT 0.3 mg/dL (0.0-0.4); BILIRUBIN,TOTAL 0.4 mg/dL (0.2-1.3); BLOOD UREA NITROGEN 16 mg/dL (7-20); CALCIUM 10.3 mg/dL (8.4-10.2); CARBON DIOXIDE 24 mmol/L (22-30); CHLORIDE 109 mmol/L (98-107); GLUCOSE 82 mg/dL (75-110); POTASSIUM 4.5 mmol/L (3.6-5.0); SODIUM 141.1 mmol/L (137-145); TOTAL PROTEIN 7.8 g/dL (6.3-8.2)
[~2018-07-22 07:02] MED LIST changes: +LIDOCAINE 0.5% INJ-PF (5 MG/ML) 50 ML SDV SUBCUT PRN
[2018-07-22] MEDS ORDERED: CEFAZOLIN 1 GM/D5W RTU 1 GM/50 ML RTUPB IV ONE (07:06)
[2018-07-22] MEDS ORDERED: LIDOCAINE 1%/EPINEPHRINE INJ 20 ML VIAL ONE (08:59)
[2018-07-22] MEDS ORDERED: PROPOFOL INJ 200 MG/20 ML VIAL IV ONE (09:01)
[2018-07-22] MEDS ORDERED: FENTANYL CITRATE INJ/PF 100 MCG/2 ML AMPUL ONE ×2 (09:01→10:15)
[2018-07-22] MEDS ORDERED: MIDAZOLAM 2 MG/2 ML INJ ONE (09:01)
[2018-07-22] MEDS ORDERED: ONDANSETRON HCL INJ/PF 4 MG/2 ML SDV ONE (09:01)
[2018-07-22] MEDS ORDERED: DIPHENHYDRAMINE HCL 50 MG/ML VIAL IV PRN (09:29)
[2018-07-22] MEDS ORDERED: FENTANYL CITRATE INJ/PF 100 MCG/2 ML AMPUL IV PRN ×2 (09:29)
[2018-07-22] MEDS ORDERED: MEPERIDINE HCL/PF INJ 25 MG/1 ML DISP.SYRIN IV PRN (09:29)
[2018-07-22] MEDS ORDERED: MORPHINE SULFATE 10 MG/ML INJ IV PRN (09:29)
[2018-07-22] MEDS ORDERED: PROMETHAZINE HCL INJ 25 MG/1 ML VIAL IV PRN (09:29)
[2018-07-22] MEDS: FENTANYL CITRATE INJ/PF 100 MCG/2 ML AMPUL IV PRN ×2 (10:14→10:25)
--- NOTE | 2018-07-22 10:30 | OPERATIVE REPORT E ---
Operative Report NAME: DENA OWENS : 1985 AGE: 32Y DATE OF SURGERY: 07/22/2018 ROOM: PREOPERATIVE DIAGNOSIS: Recurrent left inguinal sebaceous cyst. POSTOPERATIVE DIAGNOSIS: Recurrent left inguinal sebaceous cyst. OPERATION: Excision of left inguinal sebaceous cyst. SURGEON: CASSANDRA DRAPER M.D. ANESTHESIA: General. PERTINENT HISTORY AND OPERATIVE FINDINGS: This is a 32-year-old female who is known to have a left sebaceous cyst. We thought we were able to get it out in the office; however, there must have been a core that we did not get out and so it did recur. With this in mind we decided to bring her to the operating room where we could have general anesthesia and better chance of getting the remaining part of the sebaceous cyst out. At the time of surgery the sebaceous cyst was about 1.5 to 2 cm. It was located in the left inguinal area. OPERATIVE PROCEDURE: The patient was brought into the OR, placed on the table in a supine position and inducted under general anesthesia. Following this she was appropriately positioned and then prepped and draped in a sterile fashion. A circumferential incision was made around the previous incision. Then, using sharp dissection the incision was taken down and around the sebaceous cyst and the sebaceous cyst was gradually removed. She did have an injection of 1% Xylocaine with epinephrine. After removing the sebaceous cyst various bleeding points were cauterized using the Bovie. The subcutaneous tissue was then closed in 2 layers using 2-0 Dexon. Skin edges were brought together with subcuticular using 4-0 Prolene. The patient tolerated the procedure well. She had dressings placed, anesthesia was discontinued, and she was transferred to the recovery room in satisfactory condition, negligible blood loss. DICTATING PHYSICIAN: CASSANDRA DRAPER M.D. [id number] PHY#: [id number] ID: [id number] JOB#: [id number] ACCT: [id number] cc:CASSANDRA DRAPER M.D. >
[2018-07-22 12:07] VITALS: BP 144/83
== END 2018-07-22 12:15 | disposition home or self-care (01) ==
LOC: OROUT 07:02
PROVIDERS: ATTEND Obstetrics & Gynecology
PROC: 0HBAXZZ Excision of Inguinal Skin, External Approach (ICD-10-PCS; principal; 2018-07-22 09:00)
DX: L72.3 Sebaceous cyst (principal); Z79.899 Other long term (current) drug therapy
CPT/HCPCS: 36415; 400; 80053; 81001; 81025; 85027; 88304; J0690; J2250; J2405; J2704; J3010; J3490

== ENCOUNTER 2019-06-30 10:15 | Emergency (ER) | payer MEDICARE, MEDICAID ==
[2019-06-30] MEDS ORDERED: IBUPROFEN 600 MG TABLET PO ONE (10:26)
[2019-06-30] MEDS ORDERED: ACETAMINOPHEN 325 MG TABLET PO ONE (10:26)
--- NOTE | 2019-06-30 10:28 | ER Document Report ---
HPI - HPI Time Seen by Provider: 06/30/19 10:23 Pain Level: 5 - CONSTITUTIONAL Constitutional: DENIES: Fever, Chills - REPRODUCTIVE Reproductive: DENIES: : - MUSCULOSKELETAL Musculoskeletal: REPORTS: Extremity pain Past Medical History - Social History Smoking Status: Current Some Day Smoker Chew tobacco use (# tins/day): No Frequency of alcohol use: Occasional Drug Abuse: None Family History: Reviewed & Not Pertinent Patient has suicidal ideation: No Patient has homicidal ideation: No - Past Medical History Cardiac Medical History: Reports: Hx Hypertension Denies: Hx Coronary Artery Disease, Hx Heart Attack Pulmonary Medical History: Denies: Hx Asthma, Hx Bronchitis, Hx COPD, Hx Pneumonia Neurological Medical History: Denies: Hx Cerebrovascular Accident, Hx Seizures Renal/ Medical History: Denies: Hx Peritoneal Dialysis Musculoskeletal Medical History: Denies Hx Arthritis - Immunizations Hx Diphtheria, Pertussis, Tetanus Vaccination: No Vertical Provider Document - INFECTION CONTROL TRAVEL OUTSIDE OF THE [place] IN LAST 30 DAYS: No Discharge - Discharge Clinical Impression: Fall Qualifiers: Encounter type: initial encounter Qualified Code(s): W19.XXXA - Unspecified fall, initial encounter Left shoulder pain Qualifiers: Chronicity: acute Qualified Code(s): M25.512 - Pain in left shoulder Condition: Stable Referrals: ABDIRIZAK DASILVA DO [Primary Care Provider] - Follow up as needed
--- NOTE | 2019-06-30 11:17 | ER Document Report ---
ED Medical Screen (RME) - General Chief Complaint: Shoulder Pain Stated Complaint: FELL - LEFT SHOULDER PAIN Time Seen by Provider: 06/30/19 10:23 Primary Care Provider: ABDIRIZAK DASILVA DO [Primary Care Provider] - Follow up as needed Notes: Patient is a 33-year-old female who presents to the emergency department with a chief complaint of left shoulder pain. She was working out in the yard yesterday and ended up falling on her left side. Patient states that she is unable to move her arm up. She has not taken any medications to help with the pain. Exam: Patient unable to move left shoulder. I have greeted and performed a rapid initial assessment of this patient. A comprehensive ED assessment and evaluation of the patient, analysis of test results and completion of medical decision making process will be conducted by an additional ED providers. TRAVEL OUTSIDE OF THE [place] IN LAST 30 DAYS: No - Related Data Allergies/Adverse Reactions: No Known Allergies Allergy (Verified 07/27/18 07:31) Home Medications: supposed to be taking bp meds but does not. Past Medical History - Social History Chew tobacco use (# tins/day): No Frequency of alcohol use: Occasional Drug Abuse: None - Past Medical History Cardiac Medical History: Reports: Hx Hypertension Denies: Hx Coronary Artery Disease, Hx Heart Attack Pulmonary Medical History: Denies: Hx Asthma, Hx Bronchitis, Hx COPD, Hx Pneumonia Neurological Medical History: Denies: Hx Cerebrovascular Accident, Hx Seizures Renal/ Medical History: Denies: Hx Peritoneal Dialysis Musculoskeltal Medical History: Denies Hx Arthritis - Immunizations Hx Diphtheria, Pertussis, Tetanus Vaccination: No Physical Exam - Vital signs Vitals: Temp Pulse Resp BP Pulse Ox 98.1 F 86 20 192/106 H 100 06/30/19 10:20 06/30/19 10:20 06/30/19 10:20 06/30/19 10:20 06/30/19 10:20 Course - Vital Signs Vital signs: Temp Pulse Resp BP Pulse Ox 98.1 F 86 20 192/106 H 100 06/30/19 10:20 06/30/19 10:20 06/30/19 10:20 06/30/19 10:20 06/30/19 10:20 Doctor's Discharge - Discharge Clinical Impression: Fall Qualifiers: Encounter type: initial encounter Qualified Code(s): W19.XXXA - Unspecified fall, initial encounter Left shoulder pain Qualifiers: Chronicity: acute Qualified Code(s): M25.512 - Pain in left shoulder Condition: Stable Referrals: ABDIRIZAK DASILVA DO [Primary Care Provider] - Follow up as needed
[2019-06-30] MEDS ORDERED: MORPHINE SULFATE 10 MG/ML INJ IV ONE (11:35)
[2019-06-30] MEDS ORDERED: ONDANSETRON HCL INJ/PF 4 MG/2 ML SDV IV ONE (11:35)
--- NOTE | 2019-06-30 11:42 | RADIOLOGY REPORT (SQ) ---
EXAM DESCRIPTION: SHOULDER LEFT 2 OR MORE VIEWS IMAGES COMPLETED DATE/TIME: 06/30/2019 11:20 am REASON FOR STUDY: fall on left shoulder COMPARISON: None. NUMBER OF VIEWS: Two views. TECHNIQUE: AP and Y-view images acquired of the left shoulder. LIMITATIONS: None. FINDINGS: MINERALIZATION: Normal. BONES: No acute fracture. No worrisome bone lesions. JOINTS: Anterior glenohumeral dislocation. VISUALIZED LUNGS AND RIBS: No pneumothorax. No rib fracture. SOFT TISSUES: No radiopaque foreign body. OTHER: No other significant finding. IMPRESSION: Anterior glenohumeral dislocation. TECHNICAL DOCUMENTATION: JOB ID: [id number] 2010 [employer]- All Rights Reserved Reading location - IP/workstation name: [email or web address]
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
--- NOTE | 2019-06-30 12:35 | RADIOLOGY REPORT (SQ) ---
EXAM DESCRIPTION: SHOULDER LEFT 1 VIEW IMAGES COMPLETED DATE/TIME: 06/30/2019 12:22 pm REASON FOR STUDY: post reduction COMPARISON: None. NUMBER OF VIEWS: One view. TECHNIQUE: An AP view was obtained of the left shoulder. LIMITATIONS: None. FINDINGS: MINERALIZATION: Normal. BONES: No acute fracture. No worrisome bone lesions. JOINTS: Dislocation has been reduced. VISUALIZED LUNGS AND RIBS: No pneumothorax. No rib fracture. SOFT TISSUES: No radiopaque foreign body. OTHER: No other significant finding. IMPRESSION: Successful reduction. No fracture is seen. TECHNICAL DOCUMENTATION: JOB ID: [id number] 2010 [email or web address]- All Rights Reserved Reading location - IP/workstation name: [email or web address]
[2019-06-30 14:02] VITALS: BP 189/94
== END 2019-06-30 12:30 | disposition home or self-care (01) ==
LOC: ER 10:15
DX: S43.015A Anterior dislocation of left humerus, initial encounter (principal); M25.512 Pain in left shoulder; W18.30XA Fall on same level, unspecified, initial encounter; Y93.H2 Activity, gardening and landscaping; Y92.007 Garden or yard of unspecified non-institutional (private) residence as the place of occurrence of the external cause; I10 Essential (primary) hypertension
CPT/HCPCS: 99283; 96374; 96375; 73020; 73030; 23650; A9270 ×2; J2270; J2405